=== PATIENT | female | born 1980 | race Caucasian/White ===

== ENCOUNTER → 2016-11-25 | Outpatient (CLI) | payer OTHER ==
--- NOTE | 2016-11-25 14:57 | EKG ---
[facility] [place] Measurements Intervals [place] Rate: 69 P: 27 [place]: 146 QRS: 68 QRSD: 97 T: 3 QT: 389 QTc: 407 Interpretive Statements SINUS RHYTHM No previous ECG available for comparison Electronically Signed On 11-25-16 17:58:09 [facility] by Brad Medina [email or web address]
== END ==
LOC: EKG 13:56
PROVIDERS: ATTEND Physician Assistant Medical
DX: R07.1 Chest pain on breathing (principal); R06.02 Shortness of breath
CPT/HCPCS: 93005; 93010